=== PATIENT | male | born 1965 | race Caucasian/White ===

== ENCOUNTER 2022-11-28 09:26 | Emergency (ER) | payer BC ==
[~2022-11-28] VITALS: Ht 170.2 cm; Wt 76.7 kg
[2022-11-28 09:26] VITALS: BP_SYST 138; PULSE 71; RESP 18; TEMP 97.4; O2SAT 95
[2022-11-28] MEDS ORDERED: ACETAMINOPHEN 500 MG TABLET PO ONE (10:00)
[2022-11-28] MEDS ORDERED: IBUPROFEN 600 MG TABLET PO ONE (10:00)
[2022-11-28] MEDS ORDERED: NAPR-1069 PO ×2 (11:24)
[2022-11-28] MEDS ORDERED: NAPR-690 PO (11:27)
[2022-11-28 11:37] VITALS: BP_SYST 128; PULSE 86; RESP 18; TEMP 98.3; O2SAT 98
== END 2022-11-28 11:37 | disposition home or self-care (01) ==
LOC: SED 09:26
DX: M25.551 Pain in right hip (principal); Z88.0 Allergy status to penicillin; Z79.899 Other long term (current) drug therapy; W01.0XXA Fall on same level from slipping, tripping and stumbling without subsequent striking against object, initial encounter; Y93.89 Activity, other specified; Y92.89 Other specified places as the place of occurrence of the external cause; Y99.8 Other external cause status
CPT/HCPCS: 73502; 99283

== ENCOUNTER 2022-12-23 18:33 | Emergency (ER) | payer BC ==
[~2022-12-23] VITALS: Ht 170.2 cm; Wt 74.8 kg
[~2022-12-23 18:33] MED LIST: NAPR-690 PO
[2022-12-23 18:50] VITALS: BP_SYST 118; PULSE 76; RESP 16; TEMP 97.9; O2SAT 100
[2022-12-23] MEDS ORDERED: ACET325C6 PO (18:50)
[2022-12-23] MEDS ORDERED: HYDR-3927 PO (20:23)
[2022-12-23] MEDS ORDERED: IBUP-1971 PO (20:23)
[2022-12-23 20:42] VITALS: BP_SYST 118; PULSE 76; RESP 16; TEMP 97.9; O2SAT 100
== END 2022-12-23 20:42 | disposition home or self-care (01) ==
LOC: SED 18:33
DX: S83.91XA Sprain of unspecified site of right knee, initial encounter (principal); Z88.0 Allergy status to penicillin; Z79.899 Other long term (current) drug therapy; Y30.XXXA Falling, jumping or pushed from a high place, undetermined intent, initial encounter; Y93.89 Activity, other specified; Y92.89 Other specified places as the place of occurrence of the external cause; Y99.8 Other external cause status
CPT/HCPCS: 73564; 99283